=== PATIENT | female | born 1985 | race Caucasian/White ===

== ENCOUNTER 2016-12-10 14:14 | Day surgery (SDC) | payer OTHER ==
[~2016-12-10] VITALS: Ht 165.1 cm; Wt 93.4 kg
[~2016-12-10 14:14] MED LIST: NO MEDS
[2016-12-10 14:34] VITALS: Ht 165.1 cm; Wt 93.4 kg
[2016-12-10] MEDS ORDERED: NO MEDS (14:55)
[2016-12-10 15:20] VITALS: BP 105/67; PULSE 74; RESP 18
[2016-12-10 16:30] VITALS: BP 115/68; PULSE 66; RESP 12
[2016-12-10] MEDS ORDERED: PROPOFOL 20 ML ONE (18:03)
[2016-12-10] MEDS ORDERED: LIDOCAINE 2% (SDV) 5 ML INJ ONE (18:03)
--- NOTE | 2016-12-15 08:06 | GILP ---
DATE OF PROCEDURE: 12/10/2016 PROCEDURE PERFORMED: Esophagogastroduodenoscopy with biopsies. INDICATION FOR PROCEDURE: The patient is being evaluated for dyspepsia. Reflux symptoms. ANESTHESIA: Monitored anesthesia care by Anesthesiologist. TECHNIQUE: After informed consent, with the patient/relatives understanding the procedure, its indications, potential risks and complications, including but not limited to: allergic reaction, bleeding, perforation or infection, and after all pertinent questions were answered to the patients satisfaction, the patient/relatives signed witnessed informed consent. Following this, premedication was administered slowly IV push under careful cardiovascular and respiratory monitoring with pulse oximetry, automatic blood pressure and professor of theatre. Once the sedative effect was achieved the patient was place in the left lateral decubitus, the panendoscope was introduced and advanced under visual control. Careful examination of the upper gastrointestinal tract, both on insertion as well as withdrawal of the instrument disclosed the following findings: ESOPHAGUS: The distal esophagus shows mild erythema and edema in the mucosa at the EG junction. STOMACH: Upon entrance to the stomach air was insufflated, the gastric colon distended normally. The mucosa of the fundus is brought. Antrum of the stomach was carefully examined. It shows erythema and edema of the mucosa of a moderate degree. Biopsies were obtained to rule out H. pylori infection. PYLORUS: The pylorus appears patent and within normal limits, with no evidence of gastric outlet obstruction. DUODENUM: The duodenal mucosa was carefully examined in the duodenal bulb as well as the second portion of the duodenum and appears unremarkable with no evidence of duodenitis, ulcer or neoplasm. The instrument was then withdrawn, the patient tolerated the procedure well and was transfer out of the endoscopy suite awake, and in good condition to continue recovery under observation. IMPRESSION: 1. Mild distal esophagitis 2. Moderate gastritis, rule out H. pylori infection. Biopsies are obtained. RECOMMENDATIONS: The patient will be treated with PPIs, i.e. omeprazole 40 mg daily. Pathology will review as soon as available. If H. pylori is identified, therapy is advisable. Dictated By: Tanner Norris MD /trini/curt /Document#: [id number]
== END 2016-12-10 16:20 | disposition home or self-care (01) ==
LOC: GIL 14:14
PROVIDERS: ATTEND Internal Medicine Gastroenterology
DX: K29.50 Unspecified chronic gastritis without bleeding (principal); K20.8 Other esophagitis
CPT/HCPCS: 43239; 84703; 88305; 88312; Z7610

== ENCOUNTER 2019-01-03 16:05 | Emergency (ER) | payer OTHER ==
[~2019-01-03] VITALS: Ht 165.1 cm; Wt 88.0 kg
[~2019-01-03 16:05] MED LIST changes: +IBUP-1542 PO; +ONDA4TAB14 PO
[2019-01-03 16:11] VITALS: Ht 165.1 cm; Wt 88.0 kg
[2019-01-03 19:59] VITALS: BP 115/76; PULSE 77; RESP 17
== END 2019-01-03 19:59 | disposition home or self-care (01) ==
LOC: FTE 16:05
DX: R51 Headache (principal); R25.1 Tremor, unspecified; R42 Dizziness and giddiness; R53.1 Weakness
CPT/HCPCS: 81003; 81025; Z7502; 99283